=== PATIENT | female | born 1975 | race Caucasian/White ===

== ENCOUNTER 2016-08-26 23:28 | Emergency (ER) | payer OTHER ==
[2016-08-27] MEDS ORDERED: DUONEB (A & A) INH ONE (00:11)
[2016-08-27] MEDS ORDERED: XYLOCAINE-MPF 1% INJ ONE (00:11)
[2016-08-27] MEDS ORDERED: ROCEPHIN IM ONE (00:11)
[2016-08-27 00:16] LABS: URINE CULTURE NEEDED? NO; URINE MICRO REVIEW NEEDED? NO; URINE SOURCE CLEAN CATCH
--- NOTE | 2016-08-27 00:16 | PROVIDER DOCUMENTATION ---
HPI-General Adult - General Chief Complaint: Flu Symptoms Stated Complaint: FLU SX Time Seen by Provider: 08/27/16 00:04 Source: patient Allergies/Adverse Reactions: Patient Allergies Allergy/AdvReac Type Severity Reaction Status Date / Time gabapentin [From Neurontin] Allergy Intermediate "mouth Verified 08/26/16 23:56 blisters" rofecoxib [From Vioxx] Allergy Intermediate "mouth Verified 08/26/16 23:56 blisters" "steroids" Allergy Intermediate HIVES Uncoded 08/26/16 23:56 Home Medications: Home Medication List Medication Instructions Recorded Confirmed Last Taken Type Diclofenac Sodium 50 mg PO BID PRN PRN 07/27/14 05/20/16 08/22/14 History Folic Acid 1 mg PO HS 07/27/14 05/20/16 04/21/16 21:00 History Hydroxychloroquine Sulfate 200 mg PO HS 07/27/14 05/20/16 04/21/16 21:00 History Leflunomide 10 mg PO HS 07/27/14 05/20/16 04/21/16 21:00 History Omeprazole [Prilosec] 40 mg PO HS 07/27/14 05/20/16 04/21/16 21:00 History Topiramate [Topamax] 50 mg PO QHS 07/27/14 05/20/16 05/20/16 History 50 MG Butalbital/APAP/Caffeine [Fioricet] 1 each PO Q4H PRN PRN #7 tablet 04/22/1609/3005/20/16 Rx 1 EACH Cyclobenzaprine [Flexeril] 10 mg PO HS 04/22/16 05/20/16 04/21/16 21:00 History Hydrocodone/Acetaminophen [Lortab 1 each PO Q6H PRN 04/22/16 05/20/16 04/22/16 16:30 History 5-325 mg Tablet] Amoxicillin 875 mg PO TID #30 tablet 04/26/16 05/20/16 Unknown Rx Promethazine [Phenergan] 25 mg PO Q6H PRN PRN #14 tablet 04/26/16 05/20/1605/20 Rx 25 MG Albuterol 2.5MG/Ipratrop 0.5MG 3 ml INH [id number] #30 neb 08/27/16 Unknown Rx [Duoneb] Azithromycin [Zithromax Z-Teddy] 250 mg PO DIRECTED #1 pkg 08/27/16 Unknown Rx Benzonatate [Tessalon Perle] 100 mg PO 4XDAY #30 capsule 08/27/16 Unknown Rx Hydrocodone/Acetaminophen [[place] 1 each PO TID PRN PRN #10 tablet 08/27/16 Unknown Rx 7.5-325 Tablet] - History of Present Illness -Gen Adult Nature of Presenting Problems: Pt is a 40 yof who presents to ER with CC of flu-like sx. Pt has hx of lupus and complains of sore throat, cough (dry), F/chills, muscle aches, and chest pain (reports feels like pleurisy). Pt reports that she has had pneumonia in April of last year and June of this year, outpatient. Location of Pain/Injury: reports: generalized Pain Radiation: reports: no radiation Quality of Pain: reports: aching Severity: reports: moderate Onset/Duration: reports: 24 hours ago Timing: reports: still present, getting worse Associated Symptoms: reports: anxiety, chest pain, cough, EENT symptoms (sore throat), fatigue, fever/chills, joint pain, loss of appetite, muscle aches, sinus congestion/drainage, shortness of breath, pain with inspiration, weakness . denies: arm pain, back/neck pain, constipation, diarrhea, genitourinary problems, malaise, nausea, rash, seizure, syncope, vomiting, trouble walking Review of Systems - Adult - REVIEW OF SYSTEMS - ADULT Constitutional: reports: chills, fever, fatique. denies: night sweats, weight gain, weight loss Eyes: reports: no symptoms reported Ears, Nose, Mouth & Throat: reports: sinus problem (congestion), hoarseness, throat pain. denies: ear pain, hearing loss, tinnitus, nose pain, mouth/dental pain, mouth swelling, throat swelling Cardiovascular: denies: chest pain, edema, heart murmur, irregular heart rate, orthopnea, palpitations, poor circulation, PND, syncope Respiratory: reports: cough, dyspnea on exertion, pleurisy, shortness of breath . denies: chronic cough, excessive sputum production, hemoptysis, wheezing Gastrointestinal: denies: abdominal pain, constipation, diarrhea, nausea, vomiting Genitourinary: denies: dysuria, discharge, frequency, flank pain, frequent UTI's , hematuria, hesitency, incontinence, urinary retention, urgency Musculoskeletal: reports: frequent leg cramps, joint pain, muscle aches, muscle weakness. denies: bone pain, back pain, joint swelling, neck pain Integumentary: reports: no symptoms reported Neurological: denies: ataxia, dizziness/vertigo, headache/migraines, loss of balance, numbness, paresthesia, seizure, slurred speech, syncope, tremors Psychiatric: reports: no symptoms reported Endocrine: reports: no symptoms reported Hematologic/Lymphatic: reports: no symptoms reported Allergic/Immunologic: reports: no symptoms reported All Other Systems: Reviewed and Negative Past History - Adult - PAST MEDICAL HISTORY-ADULT Review of Records: reports: Nursing Assessment Review, Medications Reviewed Respiratory: reports: asthma Neurological: reports: headaches/migraines Endocrine/Immune: reports: lupus - PRIOR SURGERIES/PROCEDURES Surgical/Procedure History: reports: EGD, colonoscopy, cholecystectomy - IMMUNIZATION STATUS Childhood Immunizations: See Nurse Assessment Flu Vaccine: See Nurse Assessment Physical Exam-General - PHYSICAL EXAM-ADULT Initial Vital Signs Reviewed: Yes - CONSTITUTIONAL General Appearance: appears well, alert, moderate distress, obese, anxious. negative: no apparent distress, mild distress, severe distress, cachetic, thin, lethargic, slow to respond, obtunded, combative - HEAD, EARS, NOSE, MOUTH & THROAT HENMT: normocephalic/atraumatic, moist mucous membranes, normal ENT inspection, TMs normal, pharyngeal erythema. negative: tonsillar exudate - NECK Neck: non-tender, full range of motion, supple. negative: C-spine tenderness, limited range of motion, lymphadenopathy - RESPIRATORY Respiratory: chest non-tender, lungs clear, normal breath sounds, wheezing (mild , bilateral, upper, expiratory). negative: respiratory distress, decreased breath sounds, accessory muscle use - CARDIOVASCULAR Cardiovascular: normal peripheral pulses, regular rate, rhythm. negative: bradycardia, tachycardia, irregularly irregular - LYMPHATIC Lymphatic: no adenopathy. negative: axilla node tender, cervical node tenderness, inguinal node tender - MUSCULOSKELETAL Back Exam: no CVA tenderness, no vertebral tenderness. negative: CVA tenderness , decreased range of motion Extremity: normal range of motion, non-tender, normal gait - NEUROLOGIC Neurologic: grossly normal, no motor/sensory deficits. negative: facial droop, focal weakness, motor weakness, sensory deficit - PSYCHIATRIC Psych/Mental Status: normal thought content, normal thought process, oriented x 3, anxious, disheveled. negative: normal mood/affect Progress - PLAN OF CARE/RESULTS Progress/Plan/Lab Results: POC: X-ray/breathing treatment Vital Signs - 24 hr 08/26/16 23:36 Temperature 99.2 F Pulse Rate 135 H Respiratory 16 Rate Blood Pressure 142/98 O2 Sat by Pulse 100 Oximetry Orders Category Date Time Status CHEST-2 VIEWS [RAD] Stat Exams 08/26/16 23:55 Taken INFLUENZA SCREEN A/B Stat Lab 08/26/16 23:45 Completed URINALYSIS W/POSS RFLX CULT [URINALYSIS] Stat Lab 08/26/16 22:50 Completed Albuterol 2.5MG/Ipratrop 0.5MG [Duoneb (A & A)] Med 08/27/16 00:11 Discontinued 3 ml INH NOW ONE CefTRIAXONE [Rocephin] Med 08/27/16 00:11 Discontinued 1 gm IM NOW ONE Lidocaine 1% Pf [Xylocaine-Mpf 1%] Med 08/27/16 00:11 Discontinued 5 ml INJ NOW ONE Aerosol Treatments Routine Oth 08/27/16 00:11 Active Aerosol Treatments Stat Oth 08/27/16 00:11 Active Laboratory Tests 08/26/16 22:50 Urine Source CLEAN CATCH Urine Color YELLOW Urine Turbidity CLEAR Urine pH 5.5 Ur Specific [place] 1.012 Urine Protein NEGATIVE Ur Glucose (Stick) NEGATIVE Ur Ketones (Stick) NEGATIVE Urine Blood NEGATIVE Urine Nitrite NEGATIVE Urine Bilirubin NEGATIVE Urobilinogen Dipstick NORMAL Urine Leukocytes NEGATIVE Urine WBC (Auto) <10 Urine RBC (Auto) <10 U Epithel Cells (Auto) <10 Urine Bacteria (Auto) 1+ - XRAY 1 XRAY: Bilateral XRAY Study: Chest Impression: See EMR Report XRAY Interpretation: Mild interstitial markings LLL consistent with bronchitis Departure - Departure Time of Disposition Order: 00:37 DIAGNOSIS: Influenza A Disposition: HOME 01 Certified Medical Emergency: Emergent Condition: Stable Prescriptions: Albuterol 2.5MG/Ipratrop 0.5MG [Duoneb] 3 ml INH [id number] #30 neb Hydrocodone/Acetaminophen [[place] 7.5-325 Tablet] 1 each PO TID PRN PRN #10 tablet PRN Reason: Pain Benzonatate [Tessalon Perle] 100 mg PO 4XDAY #30 capsule Azithromycin [Zithromax Z-Teddy] 250 mg PO DIRECTED #1 pkg Referrals: NICHOLAS CHATMAN [Primary Care Provider] - Attestation - Scribe Verification/Attestation Scribe:: Donn Hill Acting as Scribe for:: London Morales Scribe documention review:: This chart was documented by a scribe and accurately reflects the service the provider performed and the decisions made by the provider.
[2016-08-27 00:21] LABS: BILIRUBIN URINE NEGATIVE (NEGATIVE); BLOOD URINE NEGATIVE (NEGATIVE); COLOR YELLOW; GLUCOSE URINE NEGATIVE (NEGATIVE); LEUKOCYTES URINE NEGATIVE (NEGATIVE); NITRITE URINE NEGATIVE (NEGATIVE); PH URINE 5.5; PROTEIN URINE NEGATIVE (NEGATIVE); SP GRAVITY URINE 1.012; TURBIDITY URINE CLEAR (CLEAR); UROBILINOGEN URINE NORMAL (NORMAL)
[2016-08-27 00:22] LABS: UR EPITHELIAL CELLS <10 /HPF (<10); URINE BACTERIA 1+ /HPF; URINE RBC <10 /HPF (<10); URINE WBC <10 /HPF (<10)
[2016-08-27] MEDS ORDERED: TAMIFLU PO ONE (00:37)
[2016-08-27 01:57] VITALS: BP 145/94
--- NOTE | 2016-08-27 09:29 | Diag Imaging Result Document ---
PROCEDURE NAME: CHEST-2 VIEWS - 08/26/2016 CHEST X-RAY 2 VIEWS, 08/27/2016: COMPARISON: 04/26/2016 FINDINGS: The lungs are normally expanded and clear. Heart size and mediastinal contours are normal. No pneumothorax or pleural effusion. IMPRESSION: Negative exam.
== END 2016-08-27 02:15 | disposition home or self-care (01) ==
LOC: ED 23:28
DX: J11.1 Influenza due to unidentified influenza virus with other respiratory manifestations (principal); J02.9 Acute pharyngitis, unspecified; R05 Cough; R50.9 Fever, unspecified; M79.1 Myalgia; R07.9 Chest pain, unspecified; R53.83 Other fatigue; R07.1 Chest pain on breathing; R09.81 Nasal congestion; R49.0 Dysphonia; R06.00 Dyspnea, unspecified; R09.1 Pleurisy; R06.02 Shortness of breath; R25.2 Cramp and spasm; M62.81 Muscle weakness (generalized); R06.2 Wheezing; M32.9 Systemic lupus erythematosus, unspecified; E66.9 Obesity, unspecified; Z79.899 Other long term (current) drug therapy
CPT/HCPCS: 71020; 81001; 87804; 94640; 96372; J0696